=== PATIENT | female | born 1950 | race Caucasian/White ===

== ENCOUNTER 2016-09-06 17:13 | Emergency (ER) | payer MEDICARE, MEDICAID ==
[2016-09-06] MEDS ORDERED: NS 0.9% 1000 ML* 1,000 ML IV ONE (17:30)
[2016-09-06] MEDS ORDERED: Ketorolac INJ* 30 MG/ML 1 ML VIAL IV ONE (17:30)
[2016-09-06 17:56] VITALS: BP 105/66
[2016-09-06 18:06] LABS: Hematocrit 37 % (35-47); Hemoglobin 12.2 g/dl (12.0-16.0); Mean Corpuscular HGB Conc 33 g/dl (31-36); Mean Corpuscular Hemoglobin 32 pg (27-31); Mean Corpuscular Volume 96 fL (80-97); Mean Platelet Volume 8 um3 (7.4-10.4); Red Blood Count 3.85 10^6/ul (4.0-5.4); Red Cell Distribution Width 14 % (10.5-15)
[2016-09-06 18:20] LABS: Albumin 3.9 g/dL (3.2-5.2); BUN/Creatinine Ratio 14.4 (8-20); C Reactive Protein 122.83 mg/L (< 5.00); Calcium 9.3 mg/dL (8.6-10.3); EGFR African American 80.3 (>60); EGFR Non-African American 62.5 (>60); Globulin 3.3 g/dL (2-4); Magnesium 1.9 mg/dL (1.9-2.7); Potassium 3.7 mmol/L (3.5-5.0); Total Bilirubin 0.5 mg/dL (0.2-1.0); Total Protein 7.2 g/dL (6.4-8.9)
--- NOTE | 2016-09-06 18:39 | RAD ---
INDICATION: Cough COMPARISON: Most recent comparison chest x-rays dated November 01, 2015 TECHNIQUE: Single AP portable view of the chest was obtained. FINDINGS: Image quality is compromised due to the relative inferiority of a portable chest x-ray. The heart and mediastinum exhibit normal size and contour. There is ectatic curvature of the thoracic aorta. This is similar to the previous chest x-ray. The lungs are grossly clear. There is no evidence of a large pleural effusion. Visualized bones are normal for the patient's age. IMPRESSION: No radiographic evidence for acute cardiopulmonary abnormality on this portable chest x-ray.
--- NOTE | 2016-09-06 19:01 | RAD ---
CLINICAL HISTORY: Pain in the left buttock that radiates towards the shoulder. Relevant surgical history includes cholecystectomy and hysterectomy. COMPARISON: None TECHNIQUE: Noncontrast CT examination of the abdomen and pelvis from the lung bases through the initial tuberosities. FINDINGS: VISUALIZED LUNG BASES: The visualized lung bases are grossly clear. There is no pleural effusion. ABDOMEN AND PELVIS: Evaluation of the solid organs and vasculature is limited without intravenous contrast. The liver, spleen, pancreas and adrenal glands are grossly normal in appearance. The gallbladder is normal. The kidneys are normal in appearance without focal mass, calcification or signs of hydronephrosis. The small and large bowel are not pathologically distended. The patient's air-filled appendix measures 7 mm in diameter (coronal image 54 of 113) there is a large amount of stool seen throughout the proximal colon from the base of the cecum to the descending colon measuring up to 4.8 cm in diameter. There is no gross retroperitoneal or mesenteric lymphadenopathy. The uterus is surgically absent. In the right inguinal canal there is a soft tissue nodule measuring 1.6 cm. There is hyperdense material overlying the midline and right abdominal wall musculature (for example image 52 of 161) contiguous with a small right lateral abdominal wall defect allowing peritoneal fat to herniate (image 55). The moderately calcified abdominal aorta and iliac arteries are normal in diameter but exhibits a moderate amount of ectatic change. There is levoconvex curvature of the thoracic or lumbar spine. Degenerative changes include loss of intervertebral disc height, exuberant marginal osteophyte formation and multilevel vacuum disc phenomenon.There are no sinister bone lesions. IMPRESSION: 1. Surgical material overlying the right lateral abdominal wall musculature with a small defect along the right aspect of the abdominal wall allowing peritoneal fat to herniate through. 2. There are no renal calculi or signs of urinary obstruction. 3. Calcified atherosclerosis of the infrarenal abdominal aorta extending into the iliofemoral arteries. Please correlate to signs and symptoms of arterial insufficiency. 4. There is a large amount of stool seen throughout the proximal colon. Please correlate to signs or symptoms of constipation. 5. Additional chronic, degenerative and iatrogenic findings as described in the body of the report.
--- NOTE | 2016-09-06 20:09 | ED ---
Shant Santillan Michael, scribed for Oscar Mcallister MD on 09/06/16 at 1737 . Back Pain - HPI Summary HPI Summary: 65 y/o female comes to the ED presenting with left flank pain that started as left shoulder pain 3 days ago. The pt denies any heavy lifting or exertion that could have caused the pain. The flank pain is worsened upon movement, and it does not radiate to other locations. She denies fever, chills, n/v, dysuria, hematuria, and a rash. The PMHx is significant for asthma, COPD, and enphysema. The FHx is significant for DM, CAD, and CA. - History of Current Complaint Chief Complaint: EDChestWallPain Stated Complaint: RIB/BACK PAIN Time Seen by Provider: 09/06/16 17:23 Hx Obtained From: Patient, Medical Records Hx Last Menstrual Period: n/a Onset/Duration: Lasting Days, Still Present Onset/Duration: Started Days Ago, Still Present Timing: Constant Back Pain Location: Is Discrete @ - left flank Severity Initially: Moderate Severity Currently: Moderate Pain Intensity: 2 Pain Scale Used: 0-10 Numeric Aggravating Symptom(s): Movement Alleviating Symptom(s): Nothing Associated Signs And Symptoms: Positive: Negative - chills, n/v, dysuria, hematuria, rash, Flank Pain. Negative: Fever - Allergies/Home Medications Allergies/Adverse Reactions: Allergies Allergy/AdvReac Type Severity Reaction Status Date / Time Amitriptyline [From Elavil] AdvReac Mild GI Upset Verified 02/23/16 18:43 Fexofenadine [From Olivia] AdvReac Mild GI Upset Verified 02/23/16 18:43 Iodine AdvReac Unknown Verified 02/23/16 18:43 Reaction Details Tizanidine [From Zanaflex] AdvReac sleepy Verified 02/23/16 18:43 PMH/Surg Hx/FS Hx/Imm Hx Endocrine/Hematology History: Reports: Hx Diabetes Denies: Hx Anticoagulant Therapy, Hx Thyroid Disease Cardiovascular History: Denies: Hx Congestive Heart Failure, Hx Deep Vein Thrombosis, Hx Hypertension , Hx Myocardial Infarction, Hx Pacemaker/ICD Respiratory History: Reports: Hx Asthma, Hx Chronic Obstructive Pulmonary Disease (COPD) - EMPHYSEMA, Hx Pneumonia, Other Respiratory Problems/Disorders - SMOKER Denies: Hx Lung Cancer GI History: Denies: Hx Gall Bladder Disease, Hx Gastrointestinal Bleed, Hx Ulcer, Hx Urosepsis History: Denies: Hx Kidney Stones, Hx Renal Disease Musculoskeletal History: Reports: Hx Back Problems - SCOLIOSIS, Other Musculoskeletal History - FIBROMYLIGA, OBESITY Neurological History: Denies: Hx Dementia, Hx Migraine, Hx Seizures, Hx Transient Ischemic Attacks (TIA) Psychiatric History: Reports: Hx Anxiety, Hx Depression Denies: Hx Schizophrenia, Hx Bipolar Disorder - Surgical History Surgery Procedure, Year, and Place: CHOLEY. RIGHT SHOULDER. BL CARPAL TUNNEL. LUMBAR. HYSTERECTOMY - Immunization History Date of Tetanus Vaccine: Unk Date of Influenza Vaccine: Fall 2012 Infectious Disease History: No Infectious Disease History: Denies: Hx Hepatitis, Hx Human Immunodeficiency Virus (HIV), Traveled Outside the [place] in Last 30 Days - Family History Known Family History: Positive: Cardiac Disease, Hypertension, Other - CA - Social History Occupation: Disabled Lives: Alone Alcohol Use: None Substance Use Type: Reports: None Hx Tobacco Use: Yes Smoking Status (MU): Heavy Every Day Tobacco Smoker Type: Cigarettes Review of Systems Negative: Fever, Chills Negative: Vomiting, Nausea Positive: flank pain. Negative: discharge, hematuria Negative: Rash All Other Systems Reviewed And Are Negative: Yes Physical Exam - Summary Physical Exam Summary: VITAL SIGNS: Reviewed. GENERAL: Patient is a well developed and nourished female who is lying comfortable in the stretcher. Patient is not in any acute respiratory distress. HEAD AND FACE: Normocephalic and atraumatic. EYES: PERRLA, EOMI x 2, No injected conjunctiva. EARS: Hearing grossly intact. Ear canals and tympanic membranes are WNL. MOUTH: Oropharynx within normal limits. NECK: Supple, trachea is midline, no adenopathy, no JVD. CHEST: Symmetric, no tenderness at palpation LUNGS: Clear to auscultation bilaterally. No wheezing or crackles. CVS: RRR,, S1 and S2 present, no murmurs or gallops appreciated. ABDOMEN: Soft, non-tender. No signs of distention. Positive bowel sounds. No rebound no guarding, and no masses palpated. No abdominal bruit or pulsations. Positive Left flank tenderness and ? CVAT's EXTREMITIES: FROM in all major joints, no edema, no cyanosis or clubbing. NEURO: Alert and oriented x 3. No acute neurological deficits. Speech is normal. SKIN: Dry and warm Triage Information Reviewed: Yes Vital Signs On Initial Exam: Initial Vitals Temp Pulse Resp BP Pulse Ox 98.5 F 89 15 108/72 92 09/06/16 17:17 09/06/16 17:17 09/06/16 17:17 09/06/16 17:17 09/06/16 17:17 Vital Signs Reviewed: Yes Diagnostics - Vital Signs Vital Signs Temp Pulse Resp BP Pulse Ox 09/06/16 17:17 98.5 F 89 15 108/72 92 - Laboratory Lab Results: Lab Results 09/06/16 09/06/16 Range/Units 18:00 18:00 WBC 9.0 (3.5-10.8) 10^3/ul RBC 3.85 L (4.0-5.4) 10^6/ul Hgb 12.2 (12.0-16.0) g/dl Hct 37 (35-47) % MCV 96 (80-97) fL MCH 32 H (27-31) pg MCHC 33 (31-36) g/dl RDW 14 (10.5-15) % Plt Count 206 (150-450) 10^3/ul MPV 8 (7.4-10.4) um3 Neut % (Auto) 58.2 (38-83) % Lymph % (Auto) 30.4 (25-47) % [place] % (Auto) 8.7 (1-9) % Eos % (Auto) 2.0 (0-6) % Baso % (Auto) 0.7 (0-2) % Absolute Neuts (auto) 5.2 (1.5-7.7) 10^3/ul Absolute Lymphs (auto) 2.7 (1.0-4.8) 10^3/ul Absolute Monos (auto) 0.8 (0-0.8) 10^3/ul Absolute Eos (auto) 0.2 (0-0.6) 10^3/ul Absolute Basos (auto) 0.1 (0-0.2) 10^3/ul Absolute Nucleated RBC 0 10^3/ul Nucleated RBC % 0 Sodium 134 (133-145) mmol/L Potassium 3.7 (3.5-5.0) mmol/L Chloride 98 L (101-111) mmol/L Carbon Dioxide 31 (22-32) mmol/L Anion Gap 5 (2-11) mmol/L BUN 13 (6-24) mg/dL Creatinine 0.90 (0.51-0.95) mg/dL Est GFR ( Amer) 80.3 (>60) Est GFR (Non-Af Amer) 62.5 (>60) BUN/Creatinine Ratio 14.4 (8-20) Glucose 94 (70-100) mg/dL Calcium 9.3 (8.6-10.3) mg/dL Magnesium 1.9 (1.9-2.7) mg/dL Total Bilirubin 0.50 (0.2-1.0) mg/dL AST 32 (13-39) U/L ALT 7 (7-52) U/L Alkaline Phosphatase 69 (34-104) U/L Total Creatine Kinase 686 H (10-223) U/L C-Reactive Protein 122.83 H (< 5.00) mg/L Total Protein 7.2 (6.4-8.9) g/dL Albumin 3.9 (3.2-5.2) g/dL Globulin 3.3 (2-4) g/dL Albumin/Globulin Ratio 1.2 (1-3) Amylase 22 L (29-103) U/L Lipase 14 (11.0-82.0) U/L Result Diagrams: 09/06/16 18:00 09/06/16 18:00 Lab Statement: Any lab studies that have been ordered have been reviewed, and results considered in the medical decision making process. - Radiology CXR Xray Interpretation: No Acute Changes - IMPRESSION: No radiographic evidence for acute cardiopulmonary abnormality on this portable chest x-ray. Radiology Interpretation Completed By: Radiologist - CT ABD/PEL CT CT Interpretation: Positive (See Comments) - IMPRESSION: 1. Surgical material overlying the right lateral abdominal wall musculature with a small defect along the right aspect of the abdominal wall allowing peritoneal fat to herniate through. 2. There are no renal calculi or signs of urinary obstruction. 3. Calcified atherosclerosis of the infrarenal abdominal aorta extending into the iliofemoral arteries. Please correlate to signs and symptoms of arterial insufficiency. 4. There is a large amount of stool seen throughout the proximal colon. Please correlate to signs or symptoms of constipation. 5. Additional chronic, degenerative and iatrogenic findings as described in the body of the report. CT Interpretation Completed By: Radiologist - EKG 1 Cardiac Rate: NL - 77 bpm EKG Rhythm: Sinus Rhythm EKG Interpretation: no ST elevation, Q waves in V2 Back Pain Course/Dx - Course Assessment/Plan: 65 y/o female comes to the ED presenting with left flank pain that started as left shoulder pain 3 days ago. The pt denies any heavy lifting or exertion that could have caused the pain. The flank pain is worsened upon movement, and it does not radiate to other locations. She denies fever, chills, n/v, dysuria, hematuria, and a rash. The PMHx is significant for asthma, COPD, and emphysema. The FHx is significant for DM, CAD, and CA. Blood work Wnl except for CPK 686 and CRP 122. CXR IMPRESSION: No radiographic evidence for acute cardiopulmonary abnormality on this. portable chest x-ray. EKG: NSR at BPM w/o CESAR. Abdominal and pelvic CT IMPRESSION: 1. Surgical material overlying the right lateral abdominal wall musculature with a small. defect along the right aspect of the abdominal wall allowing peritoneal fat to herniate. through. 2. There are no renal calculi or signs of urinary obstruction. 3. Calcified atherosclerosis of the infrarenal abdominal aorta extending into the. iliofemoral arteries. Please correlate to signs and symptoms of arterial insufficiency. 4. There is a large amount of stool seen throughout the proximal colon. Please correlate. to signs or symptoms of constipation. 5. Additional chronic, degenerative and iatrogenic findings as described in the body of. the report. Patient was IVF and percocet of the pain. She will continue taking her Oxycodone at home. She was also recommended to increase her water intake at home. I discussed all the findings and test results with the patient. Patient was instructed to return to the emergency room immediately if any of the symptoms return or worsens. Plan of care was discussed with the patient and understands and agrees. All questions were answered at patient satisfaction. There were no further complaints or concerns. P/E: Lungs: CTA B/L. Good air exchange. No wheezing or crackles heard. CVS: S1 and S2 present. No murmurs appreciated. Patient is alert and oriented x 3. Patient is hemodynamically stable. Patient will be discharged home with follow up PMD in the next 2-3 days - Diagnoses Differential Diagnosis/HQI/PQRI: Positive: Other - Abdominal pain, Back pain, UTI, Renal colic Provider Diagnoses: Back pain, Flank pain, Rhabdomyolysis Discharge - Discharge Plan Condition: Stable Disposition: HOME Patient Education Materials: Rhabdomyolysis (ED), Flank Pain (ED), Back Pain ( ED) Referrals: Sundar Flanagan MD [Primary Care Provider] - Additional Instructions: Follow up with your primary care physician as needed. The documentation as recorded by the Shant perez Michael accurately reflects the service I personally performed and the decisions made by Esvin mohamud Walter, MD.
== END 2016-09-06 20:05 | disposition home or self-care (01) ==
LOC: ED 17:13
DX: R10.84 Generalized abdominal pain (principal); M54.9 Dorsalgia, unspecified; M62.82 Rhabdomyolysis
CPT/HCPCS: 36415; 71010; 74176; 80053; 82150; 82550; 83690; 83735; 85025; 86140; 93005; 96374; 99283; J1885

== ENCOUNTER 2018-03-17 08:59 | Day surgery (SDC) | payer MEDICARE, MEDICAID ==
[~2018-03-17 08:59] MED LIST: Buffered Lidocaine 0.9% SYRIN* 5 ML/SYR SYRINGE INTRADERM ONE
[2018-03-17] MEDS ORDERED: ceFAZolin 2 GM PREMIX (*) 2 GM/50 ML BAG IVPB ONE (09:11)
[2018-03-17] MEDS ORDERED: fentaNYL* 50 MCG/ML 2 ML VIAL (100 MCG VIAL) ONE (10:57)
[2018-03-17] MEDS ORDERED: Propofol* 10 MG/ML 20 ML BTL IV PUSH ONE (10:57)
[2018-03-17] MEDS ORDERED: Dexamethasone IV* 4 MG/ML 1 ML (4 MG) ONE (10:57)
[2018-03-17] MEDS ORDERED: Ondansetron INJ* 2 MG/ML VIAL ONE (10:57)
[2018-03-17] MEDS ORDERED: Midazolam* 1 MG/ML 5 ML VIAL (5 MG) ONE (10:57)
[2018-03-17] MEDS ORDERED: Lidocaine 2% PF * 5 ML VIAL ONE (10:57)
[2018-03-17] MEDS ORDERED: Ketorolac INJ* 30 MG/ML 1 ML VIAL ONE (10:57)
[2018-03-17] MEDS ORDERED: Lidocaine 1% INJ* 10 MG/ML 30 ML SDV ONE (11:54)
[2018-03-17] MEDS ORDERED: ROPIVACAINE 5 MG/ML 30 ML BTL (0.5%) ONE (11:57)
[2018-03-17] MEDS ORDERED: EPHEDrine (Pressors)* 50 MG/ML VIAL ONE (12:36)
[2018-03-17] MEDS ORDERED: Levalbuterol 0.63MG/3ML NEB* UNIT OF USE INH PRN (13:17)
[2018-03-17] MEDS ORDERED: Ondansetron INJ* 2 MG/ML VIAL IV PRN (13:17)
[2018-03-17] MEDS ORDERED: fentaNYL* 50 MCG/ML 2 ML VIAL (100 MCG VIAL) IV PRN (13:17)
[2018-03-17] MEDS ORDERED: Naloxone* 0.4 MG/ML 1 ML VIAL IV PRN (13:17)
[2018-03-17 14:18] VITALS: BP 103/64
--- NOTE | 2018-03-18 01:18 | OP ---
DATE OF OPERATION: 03/17/18 [facility] DATE OF : 46 SURGEON: Alfredo Hong DPM ENGRAVER COPPERPLATE: None. ANESTHESIA: MAC with local. PRE-OP DIAGNOSIS: Painful 4th right hammertoe. POST-OP DIAGNOSIS: Painful 4th right hammertoe. OPERATIVE PROCEDURE: Correction of 4th right hammertoe with MTPJ arthrotomy with extensor tendon lengthening and PIPJ arthroplasty 4th right toe. 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 The patient opts for surgery at this time to attempt to decrease the deformity, reduce her risk of ulceration and improve her comfort and function. PATHOLOGY: Resected degenerative bone. ESTIMATED BLOOD LOSS: Less than 5 cc. HEMOSTASIS: Pneumatic ankle tourniquet. DESCRIPTION OF PROCEDURE: The patient was brought to the operating room and placed on the operating table in supine position. The anesthesia department administered IV sedation and a peripheral nerve block was performed with a 1:1 mixture of 1% lidocaine plain and 0.5% ropivacaine plain above the base of the 4th right toe. The right foot was then prepped and draped in the usual fashion. The right foot was exsanguinated with an Esmarch bandage and pneumatic ankle tourniquet was inflated to 250 mmHg about a well-padded right ankle. Attention was directed to the 4th right toe where a curvilinear incision was made at the dorsal aspect of the joint. The incision was deepened through subcutaneous tissues with care being taken to retract the neurovascular structures and cauterize superficial bleeders as needed. The extensor parsons was released and a transverse tenotomy and capsulotomy was performed at the PIPJ and there was contracture remaining at the metatarsophalangeal joint, so a Z extensor tendon lengthening procedure was performed and a transverse capsulotomy was performed. The McGlamry elevator was needed to free plantar adhesions of the metatarsophalangeal joint. Next, the proximal phalangeal head was resected with sagittal saw and a power gayle was used to smooth rough edges. The surgical site was flushed with copious amounts of normal sterile saline. The fore-foot was loaded and the digit was then in a rectus position. The capsule and the extensor tendon was reapproximated and secured with 4-0 Vicryl. Subcutaneous tissues were reapproximated with 4-0 Vicryl and skin was closed with 5-0 nylon. The incision was dressed with Xeroform gauze and a splint was applied with 4x4 gauze and secured to the forefoot and ultimately secured with a light Coban wrap. The pneumatic ankle tourniquet was deflated about the right ankle and a prompt hyperemic response was noted about all 5 digits of the patient's right foot. Having appeared to tolerate the procedure and anesthesia well, the patient was transported via cart from the operating room to Recovery in satisfactory condition with capillary refill less than 5 seconds to all digits of the right foot. [id number]/[facility] #: [id number] [facility]OSPITALPreet
== END 2018-03-17 14:07 | disposition home or self-care (01) ==
LOC: OREAST 08:59
PROVIDERS: ATTEND Podiatrist Foot Surgery
DX: M20.41 Other hammer toe(s) (acquired), right foot (principal); J44.9 Chronic obstructive pulmonary disease, unspecified; Z72.0 Tobacco use; K21.9 Gastro-esophageal reflux disease without esophagitis; E03.9 Hypothyroidism, unspecified; E11.9 Type 2 diabetes mellitus without complications; F41.8 Other specified anxiety disorders; M81.0 Age-related osteoporosis without current pathological fracture
CPT/HCPCS: 88304; 88311; J0690; J1100; J1885; J2250; J2405; J2704; J2795; J3010

== ENCOUNTER → 2018-05-09 | Emergency (ER) | payer MEDICARE, MEDICAID ==
--- NOTE | 2018-05-09 13:56 | RAD ---
Indication: Right hip pain. 2 views of the right hip and an AP view of the pelvis demonstrates pelvic ring to be intact. Sacroiliac joints are otherwise unremarkable. No fracture is noted. IMPRESSION: No fracture of the right hip is noted.
[2018-05-09 17:12] VITALS: BP 116/65
--- NOTE | 2018-06-10 07:43 | CONSULT ---
Consult Consult: Pt Left without being seen by a provider. An xray was completed prior to this.
== END | disposition home or self-care (01) ==
LOC: ED 12:39
DX: R06.02 Shortness of breath (principal); M25.559 Pain in unspecified hip; Z53.21 Procedure and treatment not carried out due to patient leaving prior to being seen by health care provider
CPT/HCPCS: 99281

== ENCOUNTER 2018-11-26 17:37 | Emergency (ER) | payer MEDICARE, MEDICAID ==
[2018-11-26 17:46] VITALS: BP 172/92
--- NOTE | 2018-11-26 18:00 | UC ---
Respiratory Complaint HPI - HPI Summary HPI Summary: PATIENT WITH A LONG HISTORY OF SMOKING COMPLAINS OF SEVERAL WEEKS OF WORSENING COUGH, CONGESTION, SINUS PRESSURE. HAS PLEURITIC PAIN WHEN SHE TAKES A DEEP BREATH AND COUGHS. HAS SUBJECTIVE FEVER AND CHILLS. - History of Current Complaint Chief Complaint: UCRespiratory Stated Complaint: COUGH, AND CHEST CONGESTION Time Seen by Provider: 11/26/18 17:51 Hx Obtained From: Patient, Family/911 Emergency Dispatcher - SON Hx Last Menstrual Period: n/a Onset/Duration: Gradual Onset, Lasting Weeks, Still Present Timing: Constant Severity Initially: Moderate Severity Currently: Moderate Pain Intensity: 0 Pain Scale Used: 0-10 Numeric Character: Cough: Productive Aggravating Factors: Exertion, Deep Breaths Alleviating Factors: Bronchodilator Associated Signs And Symptoms: Positive: Dyspnea, Fever, Chills, Wheezing, URI, Nasal Congestion, Hoarseness - Allergies/Home Medications Allergies/Adverse Reactions: Allergies Allergy/AdvReac Type Severity Reaction Status Date / Time iodine Allergy Severe Swelling Verified 11/26/18 17:46 Of Face,Lips,& Throat amitriptyline Allergy Intermediate GI Upset Verified 11/26/18 17:46 fexofenadine Allergy Mild GI Upset Verified 11/26/18 17:46 Home Medications: Home Medications Umeclidinium 62.5 MDI(NF) [Incruse ELLIPTA MDI (NF)] 11/26/18 [History] PMH/Surg Hx/FS Hx/Imm Hx Endocrine History: Diabetes, Hypothyroidism Cardiovascular History: Hypertension Respiratory History: COPD, Asthma Other History Of: Negative For: HIV, Hepatitis B, Hepatitis C, Anticoagulant Therapy - Surgical History Surgical History: Yes Surgery Procedure, Year, and Place: CHOLECYSTECTOMY. RIGHT SHOULDER. RIGHT CARPAL TUNNEL. LUMBAR SURGERY. HYSTERECTOMY - Family History Known Family History: Positive: Cardiac Disease, Hypertension, Other - [place] Family History: Per previous EMR, no pertinent family history is present. - Social History Alcohol Use: None Substance Use Type: None Smoking Status (MU): Current Every Day Smoker Type: Cigarettes Amount Used/How Often: 6 CIG/DAY Have You Smoked in the Last Year: Yes Household Exposure Type: Cigarettes - Immunization History Most Recent Influenza Vaccination: UP TO DATE FALL 2014 Most Recent Tetanus Shot: UP TO DATE Most Recent Pneumonia Vaccination: UP TO DATE Review of Systems All Other Systems Reviewed And Are Negative: Yes Constitutional: Positive: Fever, Chills, Fatigue ENT: Positive: Sore Throat, Nasal Discharge, Sinus Congestion Respiratory: Positive: Shortness Of Breath, Cough, Other - WHEEZE Cardiovascular: Positive: Negative Gastrointestinal: Positive: Negative Physical Exam Triage Information Reviewed: Yes Appearance: Well-Appearing, No Pain Distress, Well-Nourished Vital Signs: Initial Vital Signs Temp 98.3 F 11/26/18 17:42 Pulse 106 11/26/18 17:42 Resp 20 11/26/18 17:42 BP 172/92 11/26/18 17:42 Pulse Ox 94 11/26/18 17:42 Vital Signs Reviewed: Yes Eyes: Positive: Conjunctiva Clear ENT: Positive: Hearing grossly normal, Pharynx normal, TMs normal Neck: Positive: Supple, Nontender, No Lymphadenopathy Respiratory: Positive: Normal breath sounds, No respiratory distress, No accessory muscle use, Decreased breath sounds Cardiovascular: Positive: Tachycardia Abdomen Description: Positive: Soft Musculoskeletal: Positive: ROM Intact Neurological: Positive: Alert Psychological: Positive: Age Appropriate Behavior Skin: Negative: Rashes Re-Evaluation - Re-Evaluation First Eval Re-Evaluation Time: 18:50 - PT FEELS BETTER AFTER DUONEB AND PREDNISONE. READY FOR D/C Change: Improved Respiratory Course/Dx - Course Course Of Treatment: PATIENT LIKELY HAS A VIRALLY MEDIATED BRONCHITIS BUT WITH HER HISTORY OF SMOKING AND COPD/ASTHMA WILL COVER WITH ANTIBIOTICS. WILL ALSO GIVE PREDNISONE. HAD A NEB TX HERE IN THE WITH IMPROVEMENT IN SX. FOLLOW-UP WITH PCP IF NOT IMPROVING EXPECTED OVER THE NEXT WEEK OR SO. PT DECLINED CXR TODAY. - Differential Dx/Diagnosis Provider Diagnosis: COPD exacerbation Discharge - Sign-Out/Discharge Documenting (check all that apply): Patient Departure All imaging exams completed and their final reports reviewed: No Studies - Discharge Plan Condition: Stable Disposition: HOME Prescriptions: Azithromycin 500 mg PO DAILY #4 tab predniSONE TAB* [Deltasone TAB*] 50 mg PO DAILY #4 tab Patient Education Materials: COPD (Chronic Obstructive Pulmonary Disease) (ED) Referrals: Sundar Flanagan MD [Primary Care Provider] - If Needed Additional Instructions: YOU LIKELY DEVELOPED A VIRAL UPPER RESPIRATORY INFECTION THAT TRIGGERED A COPD EXACERBATION. WILL COVER YOU WITH ANTIBIOTICS. TAKE IT FOR THE FULL COURSE. WILL ALSO GIVE A SHORT COURSE OF PREDNISONE TO HELP CALM DOWN YOUR AIRWAY INFLAMMATION. YOU RECEIVED A NEBULIZER TREATMENT HERE IN THE URGENT CARE. CONTINUE TO USE YOUR INHALERS AT HOME PRESCRIBED. FOLLOW-UP WITH YOUR PCP IF YOU'RE NOT IMPROVING OVER THE NEXT WEEK OR SO. GO TO THE ER WITHOUT FAIL IF YOU DEVELOP WORSENING SHORTNESS OF BREATH, CHEST PAIN, FEVER, NAUSEA, DIZZINESS OR ANY OTHER CONCERNING SYMPTOMS. - Billing Disposition and Condition Condition: STABLE Disposition: Home
[2018-11-26] MEDS ORDERED: predniSONE TAB* 20 MG PO ONE (18:09)
[2018-11-26] MEDS ORDERED: Azithromycin TAB* 250 MG PO ONE (18:09)
[2018-11-26] MEDS ORDERED: Albuterol 2.5 MG/3 ML NEB.SOL* (0.083%) INH ONE (18:09)
[2018-11-26] MEDS ORDERED: Ipratropium 0.5MG/2.5ML NEB* 0.5 MG/2.5 ML NEB.SOLN INH ONE (18:09)
== END 2018-11-26 19:00 | disposition home or self-care (01) ==
LOC: UCEAST 17:37
DX: J44.1 Chronic obstructive pulmonary disease with (acute) exacerbation (principal); R07.81 Pleurodynia; E11.9 Type 2 diabetes mellitus without complications; E03.9 Hypothyroidism, unspecified; I10 Essential (primary) hypertension; Z88.8 Allergy status to other drugs, medicaments and biological substances; F17.210 Nicotine dependence, cigarettes, uncomplicated
CPT/HCPCS: 99213; A9270-GY; G0463; J7512

== ENCOUNTER 2019-06-12 16:55 | Emergency (ER) | payer MEDICARE, MEDICAID ==
--- NOTE | 2019-06-12 17:44 | UC ---
General HPI - HPI Summary HPI Summary: Ms. Adam is normally unsteady on her feet and uses a quad cane. She lost her balance and fell on Wednesday and also on Wednesday. She comes in primarily complaining that her right knee hurts from those 2 falls. She also fell asleep on the couch and fell off the couch yesterday. She sustained a small abrasion on the bridge of her nose. Also last week she began to get which she characterizes as the flu. She has been congested and coughing some. She is not aware of any fevers. She does state that if she bends over she gets short of breath which is relieved when she straightens up again. She is a long-term smoker - History of Current Complaint Chief Complaint: UCRespiratory Stated Complaint: RESP COMPLAINT Time Seen by Provider: 06/12/19 17:14 Hx Obtained From: Patient Hx Last Menstrual Period: n/a Timing: Constant Onset Severity: Moderate Current Severity: Moderate - Allergy/Home Medications Allergies/Adverse Reactions: Allergies Allergy/AdvReac Type Severity Reaction Status Date / Time iodine Allergy Severe Swelling Verified 06/12/19 17:07 Of Face,Lips,& Throat amitriptyline Allergy Intermediate GI Upset Verified 06/12/19 17:07 fexofenadine Allergy Mild GI Upset Verified 06/12/19 17:07 acetaminophen [From Ultracet] Allergy Unknown Verified 06/12/19 17:08 Reaction Details Iodine and Iodide Containing Allergy Unknown Verified 06/12/19 17:08 Produc Reaction Details tizanidine [From Zanaflex] Allergy Fatigue Verified 06/12/19 17:08 tramadol [From Ultracet] Allergy Unknown Verified 06/12/19 17:08 Reaction Details PMH/Surg Hx/FS Hx/Imm Hx Respiratory History: COPD Psychological History: Depression Other History Of: Negative For: HIV, Hepatitis B, Hepatitis C, Anticoagulant Therapy - Surgical History Surgical History: Yes Surgery Procedure, Year, and Place: CHOLECYSTECTOMY. RIGHT SHOULDER. RIGHT CARPAL TUNNEL. LUMBAR SURGERY. HYSTERECTOMY - Family History Known Family History: Positive: Cardiac Disease, Hypertension, Other - [place] Family History: Per previous EMR, no pertinent family history is present. - Social History Alcohol Use: None Substance Use Type: None Smoking Status (MU): Current Every Day Smoker Type: Cigarettes Amount Used/How Often: 6 CIG/DAY Have You Smoked in the Last Year: Yes Household Exposure Type: Cigarettes - Immunization History Most Recent Influenza Vaccination: UP TO DATE FALL 2014 Most Recent Tetanus Shot: less then 5 yrs Most Recent Pneumonia Vaccination: UP TO DATE Review of Systems All Other Systems Reviewed And Are Negative: Yes Respiratory: Positive: Shortness Of Breath - With bending over only, Cough Musculoskeletal: Positive: Decreased ROM - Right knee Physical Exam - Summary Physical Exam Summary: She is nontoxic in appearance with stable vital signs. She has class II obesity and smells like cigarette smoke. Triage Information Reviewed: Yes Appearance: Obese Vital Signs: Initial Vital Signs Temp 99.0 F 06/12/19 17:03 Pulse 94 06/12/19 17:03 Resp 18 06/12/19 17:03 BP 129/86 06/12/19 17:03 Pulse Ox 95 06/12/19 17:03 Vital Signs Reviewed: Yes ENT Exam: Normal Neck exam: Normal Respiratory Exam: Normal Respiratory: Positive: Chest non-tender Cardiovascular Exam: Normal Abdomen Description: Positive: Nontender Bowel Sounds: Positive: Present Musculoskeletal Exam: Other - Tender to range of motion of her right knee. Tender to palpation of the patella. It does not ballotte Neurological Exam: Normal Skin Exam: Normal - She is a small very superficial 1/4 inch laceration on the bridge of her nose Course/Dx - Course Course Of Treatment: Influenza swab and chest x-ray were negative. X-ray right knee suggests a tibial plateau fracture. Initially I ordered a CT scan for confirmation but apparently the [facility] is unable to perform extremity CT scans I spoke with Dr. Valadez of orthopedics who recommended knee immobilizer and follow -up in the office tomorrow patient was unable to tolerate immobilizer and has been ambulating on this for about 5 or 6 days his quad cane. I recommended she try to stay off it as much as possible and follow-up in the office tomorrow she was in agreement with this plan as was her daughter. - Diagnoses Provider Diagnosis: Tibial plateau fracture, right Discharge ED - Sign-Out/Discharge Documenting (check all that apply): Patient Departure All imaging exams completed and their final reports reviewed: Yes - Discharge Plan Condition: Stable Disposition: HOME Patient Education Materials: Knee Pain (ED) Referrals: Sundar Flanagan MD [Primary Care Provider] - Additional Instructions: It is likely you have what is called a tibial plateau fracture. You will need a CT scan and evaluation by the orthopedic doctor. I spoke with Dr. Allyson matute and one of the physicians will see you in the office tomorrow. Stay off of it as much as you can until they can give you definitive directions. - Billing Disposition and Condition Condition: STABLE Disposition: Home
[2019-06-12 18:00] LABS: Influenza A Molecular NEGATIVE (Negative); Influenza B Molecular NEGATIVE (Negative)
[2019-06-12 19:30] VITALS: BP 122/72
== END 2019-06-12 20:40 | disposition home or self-care (01) ==
LOC: UCEAST 16:55
DX: S82.141A Displaced bicondylar fracture of right tibia, initial encounter for closed fracture (principal); R05 Cough; J44.9 Chronic obstructive pulmonary disease, unspecified; E66.9 Obesity, unspecified; F17.210 Nicotine dependence, cigarettes, uncomplicated; Z88.8 Allergy status to other drugs, medicaments and biological substances; Z88.6 Allergy status to analgesic agent; Z91.09 Other allergy status, other than to drugs and biological substances; W07.XXXA Fall from chair, initial encounter; Y92.9 Unspecified place or not applicable
CPT/HCPCS: 71046; 99212; G0463

== ENCOUNTER 2021-05-06 19:15 | Inpatient (IN) ==
[2021-05-06] MEDS ORDERED: Cefepime 1 GM in Dextrose 1 GM/50 ML BAG IV ONE (19:41)
[2021-05-06] MEDS ORDERED: Dexamethasone IV 4 MG/ML VIAL 1 ml VIAL IV SLOW PU ONE (19:41)
[2021-05-06 19:57] LABS: ABS Basophils 0.1 10^3/ul (0-0.2); ABS Lymphocytes 0.5 10^3/ul (1.0-4.8); ABS Monocytes 0.8 10^3/ul (0-0.8); Eosinophil % 0.1 %; Hematocrit 40 % (35-47); Hemoglobin 12.9 g/dL (12.0-16.0); Lymphocyte % 3.9 %; Mean Corpuscular HGB Conc 33 g/dL (31-36); Mean Corpuscular Hemoglobin 32 pg (27-31); Mean Corpuscular Volume 97 fL (80-97); Mean Platelet Volume 7.6 fL (7.4-10.4); Platelet Count 232 10^3/uL (150-450); Red Cell Distribution Width 15 % (10-15); White Blood Count 13.4 10^3/uL (3.5-10.8)
[2021-05-06 20:05] LABS: INR 1.2 (0.86-1.15)
[2021-05-06 20:12] LABS: Influenza A Molecular Negative (Negative); Influenza B Molecular Negative (Negative); Rapid COVID-19 Molecular Undetected (Undetected)
[2021-05-06 20:15] LABS: ALT 15 U/L (7-52); AST 48 U/L (13-39); Albumin/Globulin Ratio 1.1 (1-3); Alkaline Phosphatase 71 U/L (35-149); Anion Gap 14 mmol/L (2-11); Blood Urea Nitrogen 34 mg/dL (6-24); C Reactive Protein 130.06 mg/L (<8.01); CO2 Carbon Dioxide 27 mmol/L (22-32); Calcium 9.1 mg/dL (8.6-10.3); Chloride 95 mmol/L (101-111); Globulin 3.5 g/dL (2-4); Glucose 110 mg/dL (70-100); Magnesium 1.7 mg/dL (1.9-2.7); Potassium 4.6 mmol/L (3.5-5.0); Sodium 136 mmol/L (135-145); Total Protein 7.5 g/dL (6.4-8.9)
[2021-05-06] MEDS ORDERED: Magnesium Sulfate 2 gm BAG 2 GM/50 ML BAG IVPB ONE (20:25)
[2021-05-06] MEDS ORDERED: Lactated Ringers 1000 ml BAG 1,000 ML IV ONE (20:25)
[2021-05-06 20:35] LABS: Troponin I 0.04 ng/mL (<0.03)
[2021-05-06 20:39] LABS: PCO2 Arterial 45 mmHg (35-45); PO2 Arterial 83 mmHg (80-100)
[2021-05-06 20:49] LABS: Urine Appearance Cloudy; Urine Bilirubin Negative (Negative); Urine Blood 2+ (Negative); Urine Color Yellow; Urine Glucose Negative (Negative); Urine Ketones Negative (Negative); Urine Nitrite Negative (Negative); Urine Protein 2+(100 mg/dL) (Negative); Urine Specific Gravity 1.014 (1.002-1.030); Urine Urobilinogen Negative (Negative)
[2021-05-06 21:00] LABS: Urine Bacteria Absent (Absent); Urine Red Blood Cell Trace(0-2/hpf) (Absent); Urine White Blood Cell Trace(0-5/hpf) (Absent)
[2021-05-06] MEDS ORDERED: Azithromycin 500 mg/250 ml NS 500 MG/250 ML BAG IVPB ONE (22:11)
[2021-05-06] MEDS ORDERED: Albuterol/Ipratropium NEB.SOL (2.5/0.5 MG) 3 ML NEB.SOLN ONE (22:17)
[2021-05-06] MEDS ORDERED: Albuterol/Ipratropium NEB.SOL (2.5/0.5 MG) 3 ML NEB.SOLN INH ONE (22:17)
[2021-05-06 22:52] LABS: Phosphorus 5.4 mg/dL (2.5-5.0)
[2021-05-06 23:10] LABS: TSH Ultra Thyroid Stim Horm 4.16 mcIU/mL (0.34-5.60)
[2021-05-06 23:31] LABS: Troponin I 0.04 ng/mL (<0.03)
[2021-05-07] MEDS: Albuterol HFA INHALER 8 gm MDI INH SCH ×9 (01:51→23:30)
[2021-05-07] MEDS: methylPREDNISolone SOD 40 mg/ml 1 ml VIAL IV SCH ×3 (02:30→17:35)
[2021-05-07] MEDS ORDERED: Albuterol HFA INHALER 8 gm MDI INH ONE (04:10)
[2021-05-07 04:49] LABS: ABS Lymphocytes 0.3 10^3/ul (1.0-4.8); ABS Monocytes 0.4 10^3/ul (0-0.8); ABS Neutrophils 11.7 10^3/ul (1.5-7.7); Eosinophil % 0.1 %; Hematocrit 34 % (35-47); Hemoglobin 11.4 g/dL (12.0-16.0); Lymphocyte % 2.2 %; Mean Corpuscular HGB Conc 33 g/dL (31-36); Mean Corpuscular Hemoglobin 32 pg (27-31); Mean Corpuscular Volume 97 fL (80-97); Mean Platelet Volume 7.7 fL (7.4-10.4); Platelet Count 185 10^3/uL (150-450); Red Blood Count 3.53 10^6 /uL (3.70-4.87); Red Cell Distribution Width 15 % (10-15); White Blood Count 12.4 10^3/uL (3.5-10.8)
[2021-05-07 05:06] LABS: ALT 14 U/L (7-52); AST 44 U/L (13-39); Albumin 3.3 g/dL (3.2-5.2); Albumin/Globulin Ratio 1.1 (1-3); Alkaline Phosphatase 57 U/L (35-149); Anion Gap 11 mmol/L (2-11); Blood Urea Nitrogen 40 mg/dL (6-24); CO2 Carbon Dioxide 24 mmol/L (22-32); Calcium 8.6 mg/dL (8.6-10.3); Chloride 97 mmol/L (101-111); Globulin 3.1 g/dL (2-4); Glucose 178 mg/dL (70-100); Magnesium 2.4 mg/dL (1.9-2.7); Phosphorus 5.5 mg/dL (2.5-5.0); Potassium 4.5 mmol/L (3.5-5.0); Sodium 132 mmol/L (135-145); Total Protein 6.4 g/dL (6.4-8.9)
[2021-05-07 05:25] LABS: Troponin I 0.03 ng/mL (<0.03)
[2021-05-07] MEDS: Heparin 5000 UNITS/ML 1 mL VIAL SUBCUT SCH ×3 (06:05→21:36)
[2021-05-07] MEDS ORDERED: CALCIUM CARBONATE VITAMIN D3 PO SCH (07:30)
[2021-05-07] MEDS ORDERED: Cefepime 2 GM in Dextrose 2 GM/50 ML BAG IV SCH (08:00)
[2021-05-07] MEDS ORDERED: Cefepime 1 GM in Dextrose 1 GM/50 ML BAG IV SCH (08:00)
[2021-05-07] MEDS: Venlafaxine XR 75 mg PO SCH (09:48)
[2021-05-07] MEDS: Calcium/Vitamin D TAB 250/125 TAB PO SCH ×2 (09:49→17:35)
[2021-05-07] MEDS: Pentoxifylline CR 400 mg TAB 400 MG PO SCH ×2 (09:50→22:27)
[2021-05-07] MEDS: Polyethylene Glycol 3350 17 GM PACKET PO SCH (09:50)
[2021-05-07] MEDS: Aspirin EC 81 mg TAB.EC (enteric coated) PO SCH (09:50)
[2021-05-07] MEDS: Pantoprazole VIAL 40 MG VIAL IV SCH (09:51)
[2021-05-07] MEDS ORDERED: Cefepime 1 GM in Dextrose 1 GM/50 ML BAG IV ONE (13:36)
[2021-05-07] MEDS ORDERED: Lorazepam PYXIS KEY PRN (13:56)
[2021-05-07] MEDS: LORazepam 2 mg VIAL 1 ml IV PUSH PRN (14:46)
[2021-05-07] MEDS ORDERED: Dextrose 50% Syringe 50 ml 25 GM/50 ML SYRINGE IV PUSH PRN (18:27)
[2021-05-07] MEDS: Cefepime 1 GM in Dextrose 1 GM/50 ML BAG IV SCH (21:34)
[2021-05-08] MEDS: methylPREDNISolone SOD 40 mg/ml 1 ml VIAL IV SCH ×3 (02:17→18:01)
[2021-05-08] MEDS: Albuterol HFA INHALER 8 gm MDI INH SCH ×3 (03:15→13:26)
[2021-05-08] MEDS: Heparin 5000 UNITS/ML 1 mL VIAL SUBCUT SCH ×3 (05:12→22:45)
[2021-05-08 06:41] LABS: Hematocrit 35 % (35-47); Hemoglobin 11.4 g/dL (12.0-16.0); Mean Corpuscular HGB Conc 33 g/dL (31-36); Mean Corpuscular Hemoglobin 32 pg (27-31); Mean Corpuscular Volume 97 fL (80-97); Mean Platelet Volume 7.8 fL (7.4-10.4); Platelet Count 202 10^3/uL (150-450); Red Blood Count 3.57 10^6 /uL (3.70-4.87); Red Cell Distribution Width 14 % (10-15); White Blood Count 15.4 10^3/uL (3.5-10.8)
[2021-05-08 06:51] LABS: INR 1.22 (0.86-1.15)
[2021-05-08 06:56] LABS: Calcium 8.9 mg/dL (8.6-10.3); Magnesium 2.2 mg/dL (1.9-2.7); Phosphorus 3.2 mg/dL (2.5-5.0); Potassium 4.6 mmol/L (3.5-5.0)
[2021-05-08] MEDS ORDERED: Perflutren Lipid Microsphere 3 ML VIAL ONE (08:21)
[2021-05-08] MEDS: Aspirin EC 81 mg TAB.EC (enteric coated) PO SCH (09:00)
[2021-05-08] MEDS: Pantoprazole VIAL 40 MG VIAL IV SCH (09:00)
[2021-05-08] MEDS: Venlafaxine XR 75 mg PO SCH (09:00)
[2021-05-08] MEDS: Calcium/Vitamin D TAB 250/125 TAB PO SCH ×2 (09:00→17:11)
[2021-05-08] MEDS: Polyethylene Glycol 3350 17 GM PACKET PO SCH (09:01)
[2021-05-08] MEDS: Cefepime 1 GM in Dextrose 1 GM/50 ML BAG IV SCH ×2 (09:09→22:44)
[2021-05-08] MEDS: Pentoxifylline CR 400 mg TAB 400 MG PO SCH ×2 (09:09→22:45)
[2021-05-08] MEDS ORDERED: Albuterol HFA INHALER 8 gm MDI INH PRN (13:25)
[2021-05-09] MEDS: methylPREDNISolone SOD 40 mg/ml 1 ml VIAL IV SCH (02:16)
[2021-05-09] MEDS: Heparin 5000 UNITS/ML 1 mL VIAL SUBCUT SCH (06:05)
[2021-05-09 06:39] LABS: Calcium 8.9 mg/dL (8.6-10.3); Magnesium 2.1 mg/dL (1.9-2.7)
[2021-05-09 06:41] LABS: ABS Lymphocytes 0.6 10^3/ul (1.0-4.8); ABS Monocytes 0.4 10^3/ul (0-0.8); ABS Neutrophils 13.6 10^3/ul (1.5-7.7); Hematocrit 36 % (35-47); Hemoglobin 11.7 g/dL (12.0-16.0); Lymphocyte % 4.3 %; Mean Corpuscular HGB Conc 33 g/dL (31-36); Mean Corpuscular Hemoglobin 32 pg (27-31); Mean Corpuscular Volume 97 fL (80-97); Mean Platelet Volume 8.4 fL (7.4-10.4); Platelet Count 223 10^3/uL (150-450); Red Blood Count 3.65 10^6 /uL (3.70-4.87); Red Cell Distribution Width 14 % (10-15); White Blood Count 14.7 10^3/uL (3.5-10.8)
[2021-05-09 07:08] LABS: Potassium 5.4 mmol/L (3.5-5.0)
[2021-05-09] MEDS: Calcium/Vitamin D TAB 250/125 TAB PO SCH ×2 (07:21→17:13)
[2021-05-09] MEDS ORDERED: Flu vaccine *QUAD* 2021-22* 0.5 ML SYRINGE IM ONE (09:00)
[2021-05-09] MEDS ORDERED: Pneumococcal Vac 23-Polyvalent IM ONE (09:00)
[2021-05-09] MEDS: Aspirin EC 81 mg TAB.EC (enteric coated) PO SCH (09:35)
[2021-05-09] MEDS: Venlafaxine XR 75 mg PO SCH (09:35)
[2021-05-09] MEDS: Pentoxifylline CR 400 mg TAB 400 MG PO SCH ×2 (09:38→21:48)
[2021-05-09] MEDS: Polyethylene Glycol 3350 17 GM PACKET PO SCH (09:38)
[2021-05-09] MEDS: cefTRIAXone 2 GM ADDV.VIAL 2 GM in NS 0.9% 100 ml BAG 100 ML IV SCH (10:49)
[2021-05-09] MEDS: LORazepam 2 mg VIAL 1 ml IV PUSH PRN (17:15)
[2021-05-10 06:41] LABS: Hematocrit 36 % (35-47); Hemoglobin 11.9 g/dL (12.0-16.0); Mean Corpuscular HGB Conc 33 g/dL (31-36); Mean Corpuscular Hemoglobin 32 pg (27-31); Mean Corpuscular Volume 97 fL (80-97); Mean Platelet Volume 8.5 fL (7.4-10.4); Platelet Count 245 10^3/uL (150-450); Red Blood Count 3.74 10^6 /uL (3.70-4.87); Red Cell Distribution Width 14 % (10-15); White Blood Count 17.6 10^3/uL (3.5-10.8)
[2021-05-10 07:03] LABS: Calcium 9.4 mg/dL (8.6-10.3); Magnesium 1.8 mg/dL (1.9-2.7); Potassium 4.6 mmol/L (3.5-5.0)
[2021-05-10] MEDS ORDERED: Magnesium Sulfate IV 1GM/100ML 1 GM/100 ML BAG IV ONE (07:09)
[2021-05-10] MEDS: Calcium/Vitamin D TAB 250/125 TAB PO SCH ×2 (07:22→18:24)
[2021-05-10] MEDS: Venlafaxine XR 75 mg PO SCH (07:33)
[2021-05-10] MEDS: Polyethylene Glycol 3350 17 GM PACKET PO SCH (07:33)
[2021-05-10] MEDS: Aspirin EC 81 mg TAB.EC (enteric coated) PO SCH (07:34)
[2021-05-10] MEDS: Pentoxifylline CR 400 mg TAB 400 MG PO SCH ×2 (07:34→20:52)
[2021-05-10 08:38] LABS: ABS Basophils 0.2 10^3/ul (0-0.2); ABS Lymphocytes 1.4 10^3/ul (1.0-4.8); ABS Monocytes 0.8 10^3/ul (0-0.8); ABS Neutrophils 15.2 10^3/ul (1.5-7.7); Eosinophil % 0.1 %; Lymphocyte % 8.2 %
[2021-05-10] MEDS: cefTRIAXone 2 GM ADDV.VIAL 2 GM in NS 0.9% 100 ml BAG 100 ML IV SCH ×2 (10:03→11:33)
[2021-05-10] MEDS ORDERED: guaiFENesin 100 mg/5 ml LIQ unit dose cup PO PRN (21:07)
[2021-05-11] MEDS: Calcium/Vitamin D TAB 250/125 TAB PO SCH (08:29)
[2021-05-11] MEDS: Polyethylene Glycol 3350 17 GM PACKET PO SCH (08:29)
[2021-05-11] MEDS: Aspirin EC 81 mg TAB.EC (enteric coated) PO SCH (08:30)
[2021-05-11] MEDS: Venlafaxine XR 75 mg PO SCH (08:30)
[2021-05-11] MEDS: Pentoxifylline CR 400 mg TAB 400 MG PO SCH (09:44)
[2021-05-11] MEDS: cefTRIAXone 2 GM ADDV.VIAL 2 GM in NS 0.9% 100 ml BAG 100 ML IV SCH (11:17)
[2021-05-11 11:20] VITALS: BP 121/59
== END 2021-05-11 12:05 | disposition home or self-care (01) | DRG 871 ==
LOC: ED 19:15 → EDHOLD 22:08 → SUATTDRO 22:08 → ICU 05-07 15:39 → MED 05-08 14:04
PROVIDERS: ADMIT Internal Medicine; ATTEND Pediatrics

== ENCOUNTER 2021-07-09 17:41 | Inpatient (IN) ==
[2021-07-09 18:59] LABS: ABS Basophils 0.1 10^3/ul (0-0.2); ABS Lymphocytes 1.2 10^3/ul (1.0-4.8); ABS Monocytes 1.3 10^3/ul (0-0.8); ABS Neutrophils 12.8 10^3/ul (1.5-7.7); Hematocrit 40 % (35-47); Hemoglobin 13.2 g/dL (12.0-16.0); Lymphocyte % 8.1 %; Mean Corpuscular HGB Conc 34 g/dL (31-36); Mean Corpuscular Hemoglobin 31 pg (27-31); Mean Corpuscular Volume 92 fL (80-97); Mean Platelet Volume 7.6 fL (7.4-10.4); Platelet Count 185 10^3/uL (150-450); Red Blood Count 4.28 10^6 /uL (3.70-4.87); Red Cell Distribution Width 14 % (10-15); White Blood Count 15.4 10^3/uL (3.5-10.8)
[2021-07-09 19:18] LABS: Activated Partial Thrombo Time 29.1 seconds (26.0-38.0); INR 1.22 (0.86-1.15)
[2021-07-09 19:19] LABS: Albumin 3.8 g/dL (3.2-5.2); C Reactive Protein 179.23 mg/L (<8.01); Calcium 8.9 mg/dL (8.6-10.3); Globulin 3.8 g/dL (2-4); Potassium 3.9 mmol/L (3.5-5.0); Total Bilirubin 0.7 mg/dL (0.2-1.0); Total Protein 7.6 g/dL (6.4-8.9); eGFR CKD-EPI 36.8 (>60)
[2021-07-09 19:21] LABS: Troponin I 0.01 ng/mL (<0.03)
[2021-07-09] MEDS ORDERED: Lactated Ringers 1000 ml BAG 1,000 ML IV ONE (21:05)
[2021-07-09] MEDS ORDERED: Dexamethasone IV 4 MG/ML VIAL 1 ml VIAL IV SLOW PU ONE (21:54)
[2021-07-10] MEDS ORDERED: Albuterol HFA INHALER 8 gm MDI INH PRN (00:49)
[2021-07-10] MEDS ORDERED: Albuterol/Ipratropium NEB.SOL (2.5/0.5 MG) 3 ML NEB.SOLN INH PRN (00:49)
[2021-07-10] MEDS ORDERED: Remdesivir 100 mg Vial 200 MG in NS 0.9% 250 ml 210 ML IV ONE (01:30)
[2021-07-10 07:02] LABS: ABS Basophils 0.1 10^3/ul (0-0.2); ABS Lymphocytes 0.7 10^3/ul (1.0-4.8); ABS Monocytes 0.3 10^3/ul (0-0.8); ABS Neutrophils 11.2 10^3/ul (1.5-7.7); Eosinophil % 0.1 %; Hematocrit 38 % (35-47); Hemoglobin 12.6 g/dL (12.0-16.0); Mean Corpuscular HGB Conc 33 g/dL (31-36); Mean Corpuscular Hemoglobin 31 pg (27-31); Mean Corpuscular Volume 94 fL (80-97); Mean Platelet Volume 7.4 fL (7.4-10.4); Platelet Count 183 10^3/uL (150-450); Red Blood Count 4.08 10^6 /uL (3.70-4.87); Red Cell Distribution Width 15 % (10-15); White Blood Count 12.3 10^3/uL (3.5-10.8)
[2021-07-10 07:23] LABS: Albumin 3.5 g/dL (3.2-5.2); Calcium 8.6 mg/dL (8.6-10.3); Globulin 3.6 g/dL (2-4); Potassium 3.6 mmol/L (3.5-5.0); Total Bilirubin 0.4 mg/dL (0.2-1.0); Total Protein 7.1 g/dL (6.4-8.9); eGFR CKD-EPI 59.1 (>60)
[2021-07-10] MEDS ORDERED: Enoxaparin 30 MG/0.3 ML SYR SUBCUT SCH (07:30)
[2021-07-10] MEDS ORDERED: Lactated Ringers 1000 ml BAG 1,000 ML IV ONE (07:47)
[2021-07-10] MEDS: Aspirin EC 81 mg TAB.EC (enteric coated) PO SCH (08:29)
[2021-07-10] MEDS: Mometasone/Formoter 100/5 MDI INH SCH ×2 (08:51→19:41)
[2021-07-10] MEDS: Enoxaparin 40 MG/0.4 ML SYR SUBCUT SCH (08:59)
[2021-07-10] MEDS ORDERED: Dextrose 50% Syringe 50 ml 25 GM/50 ML SYRINGE IV PUSH PRN (11:37)
[2021-07-10] MEDS ORDERED: Remdesivir 100 mg Q24H MAINTENANCE DOSING IV SCH (21:00)
[2021-07-11 06:30] LABS: ABS Basophils 0.1 10^3/ul (0-0.2); ABS Lymphocytes 0.8 10^3/ul (1.0-4.8); ABS Monocytes 0.6 10^3/ul (0-0.8); Hematocrit 38 % (35-47); Hemoglobin 12.6 g/dL (12.0-16.0); Lymphocyte % 4.6 %; Mean Corpuscular HGB Conc 33 g/dL (31-36); Mean Corpuscular Hemoglobin 30 pg (27-31); Mean Corpuscular Volume 92 fL (80-97); Mean Platelet Volume 7.7 fL (7.4-10.4); Platelet Count 264 10^3/uL (150-450); Red Blood Count 4.15 10^6 /uL (3.70-4.87); Red Cell Distribution Width 15 % (10-15); White Blood Count 16.4 10^3/uL (3.5-10.8)
[2021-07-11 06:44] LABS: Albumin 3.4 g/dL (3.2-5.2); Calcium 9.3 mg/dL (8.6-10.3); Potassium 4.6 mmol/L (3.5-5.0); Total Bilirubin 0.3 mg/dL (0.2-1.0)
[2021-07-11 06:50] LABS: Albumin/Globulin Ratio 0.9 (1-3); Globulin 3.6 g/dL (2-4); eGFR CKD-EPI 81.9 (>60)
[2021-07-11] MEDS: Mometasone/Formoter 100/5 MDI INH SCH ×2 (07:24→21:39)
[2021-07-11] MEDS: Aspirin EC 81 mg TAB.EC (enteric coated) PO SCH (07:49)
[2021-07-11] MEDS: Enoxaparin 40 MG/0.4 ML SYR SUBCUT SCH (07:49)
[2021-07-11] MEDS ORDERED: Benzocaine/Menthol LOZ PO PRN (07:55)
[2021-07-11] MEDS ORDERED: Furosemide 20 mg/2 ml IV VIAL IV ONE (08:39)
[2021-07-11 11:20] VITALS: BP 134/80
== END 2021-07-11 20:00 | disposition home or self-care (01) | DRG 177 ==
LOC: ED 17:41 → EDHOLD 23:44 → SUATTDRO 23:44 → MED 07-10 01:48
PROVIDERS: ADMIT Internal Medicine; ATTEND Internal Medicine